=== PATIENT | male | born 1985 | race African-American/Black ===

== ENCOUNTER 2024-05-22 21:02 | Emergency (ER) | payer SELFPAY ==
[~2024-05-22] VITALS: Ht 190.5 cm; Wt 85.6 kg
[2024-05-22 21:11] VITALS: O2SAT 100
[2024-05-22] MEDS: ACETAMINOPHEN 325MG TABLET PO ONE (22:15)
[2024-05-22] MEDS: IBUPROFEN 400MG TABLET PO ONE (22:15)
[2024-05-22] MEDS ORDERED: NAPR-1486 MT (22:48)
[2024-05-22 22:54] VITALS: BP 116/74; PULSE 55; RESP 16; TEMP 36.7; O2SAT 100
== END 2024-05-22 22:55 | disposition home or self-care (01) ==
LOC: ER 21:02
DX: M54.9 Dorsalgia, unspecified (principal); Z79.1 Long term (current) use of non-steroidal anti-inflammatories (NSAID); Z79.899 Other long term (current) drug therapy; V89.2XXA Person injured in unspecified motor-vehicle accident, traffic, initial encounter; Y93.89 Activity, other specified; Y92.89 Other specified places as the place of occurrence of the external cause; Y99.8 Other external cause status
CPT/HCPCS: 71046; 99283